=== PATIENT | male | born 1950 | race Caucasian/White ===

== ENCOUNTER 2018-08-12 10:31 | Outpatient (CLI) | payer MEDICARE ==
--- NOTE | 2018-08-12 10:54 | RAD ---
Exam: XR Foot Rt 3 View STANDARD HISTORY: Plantar fasciitis. COMPARISON: None FINDINGS: Plantar calcaneal enthesophyte is seen. No acute fracture, dislocation, or other acute osseous abnormality is identified. IMPRESSION: No acute osseous abnormality is identified.
== END 2018-08-12 10:32 | disposition home or self-care (01) ==
LOC: NAV RAD 10:31
PROVIDERS: ATTEND Family Medicine
DX: M72.2 Plantar fascial fibromatosis (principal)

== ENCOUNTER 2019-01-26 09:16 | Emergency (ER) | payer MEDICARE ==
[2019-01-26] MEDS ORDERED: Ketorolac Tromethamine 30 MG/ML VIAL ONE (09:33)
[2019-01-26 09:46] LABS: #Eosinphils 0.1 thou/uL (0.0-0.7); #Lymphocytes 0.7 thou/uL (1.20-3.40); #Monocytes 0.4 thou/uL (0.11-0.59); #Neutrophils 2.3 thou/uL (1.40-6.50); %Basophils 1.1 % (0.0-1.0); %Eosinophils 1.9 % (0.0-10.0); %Lymphocytes 18.7 % (21.0-51.0); %Monocytes 12.5 % (0.0-10.0); %Neutrophils 65.8 % (42.0-75.0); Hemoglobin 14.5 g/dL (14.0-18.0); Mean Corpuscular HGB CONC 33.8 g/dL (32.0-36.0); Mean Corpuscular Hemoglobin 30.1 pg (27.0-31.0); Mean Corpuscular Volume 89.2 fL (78.0-98.0); Mean Platelet Volume 6.8 fL (7.4-10.4); Platelet Count 213 thou/uL (130-400); RBC Distribution Width 11.4 % (11.5-14.5); White Blood Cell (WBC) Count 3.5 thou/uL (4.8-10.8)
[2019-01-26 10:02] LABS: ALT (SGPT) 15 U/L (8-55); AST (SGOT) 18 U/L (5-34); Albumin 4.1 g/dL (3.4-4.8); Alkaline Phosphatase 69 U/L (40-110); Anion Gap 13 mmol/L (10-20); BUN (Urea Nitrogen) 18 mg/dL (8.4-25.7); Bilirubin, Total 0.6 mg/dL (0.2-1.2); Calc. Creatinine Clearance 0 mL/min (70-130); Calcium 8.8 mg/dL (7.8-10.44); Carbon Dioxide 24 mmol/L (23-31); Chloride 100 mmol/L (98-107); Estimated GFR-MDRD 56; Globulin 2.4 g/dL (2.4-3.5); Glucose 199 mg/dL (80-115); Potassium 3.3 mmol/L (3.5-5.1); Protein, Total 6.5 g/dL (5.8-8.1); Sodium 134 mmol/L (136-145)
[2019-01-26] MEDS ORDERED: Aspirin Chewable 81 MG TAB ONE (10:07)
[2019-01-26] MEDS ORDERED: Acetaminophen 500 MG TAB ONE (10:07)
[2019-01-26] MEDS ORDERED: cefTRIAXone\\ROCEPHIN 2 GM VIAL ONE (10:08)
--- NOTE | 2019-01-26 10:20 | RAD ---
PORTABLE CHEST 1 VIEW: Date: 01/26/19 Time: 0919 hours HISTORY: Chest pain. FINDINGS: Comparison made with exam of 11/05/16. The heart size is normal. The lungs are expanded without focal areas of consolidation, pneumothoraces , or pleural effusions. IMPRESSION: No acute process. POS: [facility]
[2019-01-26] MEDS ORDERED: Oseltamivir 75 MG CAP ONE (10:36)
[2019-01-26] MEDS ORDERED: Potassium Chloride 20 MEQ TAB ONE (10:36)
[2019-01-26] MEDS ORDERED: Azithromycin 500 MG VIAL ONE (10:49)
[2019-01-26] MEDS ORDERED: Sodium Chloride 0.9% 250 ML 250 ML ONE (10:55)
== END 2019-01-26 12:16 | disposition home or self-care (01) ==
LOC: NAV ERS 09:16
DX: J11.1 Influenza due to unidentified influenza virus with other respiratory manifestations (principal); R07.9 Chest pain, unspecified; R42 Dizziness and giddiness; F17.220 Nicotine dependence, chewing tobacco, uncomplicated
CPT/HCPCS: 36415; 71045; 80053; 83880; 84484; 85025; 85379; 87804; 93005; 94760; 96365; 96367; J0456; J0696; J1885; J7050

== ENCOUNTER 2022-04-03 08:36 | Outpatient (CLI) | payer MEDICARE | END 2022-04-03 08:37 | disposition home or self-care (01) | LOC: NAV RAD 08:36 | PROVIDERS: ATTEND Nurse Practitioner Family | DX: M25.511 Pain in right shoulder (principal); M19.011 Primary osteoarthritis, right shoulder ==